=== PATIENT | female | born 1960 | race Caucasian/White ===

== ENCOUNTER 2019-08-06 14:56 | Emergency (ER) | payer OTHER ==
[~2019-08-06] VITALS: Ht 154.9 cm; Wt 100.0 kg
[2019-08-06 15:01] VITALS: BP 122/83
--- NOTE | 2019-08-06 15:31 | EKG ---
[address] [address] Test Date: 2019-08-06 Test Time: 15:23:46 Pat Name: ARIELLE BLACKMON Department: Room: Gender: Hospitality Manager: : 1960 Requested By: NISA MUELLER Order Number: [id number] Reading MD: Alan Paulino MD Measurements Intervals [place] Rate: P: DC: QRS: QRSD: T: QT: QTc: Interpretive Statements SR NON-SPECIFIC ST/T CHANGES Electronically Signed On 08-13-2019 13:24:19 CDT by Alan Paulino MD
--- NOTE | 2019-08-06 15:41 | RAD ---
EXAM: CT head without contrast INDICATION: Left-sided paresthesia, weakness COMPARISON: None TECHNIQUE: Axial CT imaging through the head without intravenous contrast. One or more of the following individualized dose reduction techniques were utilized for this examination: 1. Automated exposure control 2. Adjustment of the mA and/or kV according to patient size 3. Use of iterative reconstruction technique. FINDINGS: The ventricles and sulci are normal. Weber-white matter differentiation is maintained. There is no intracranial hemorrhage, acute infarct, or mass lesion. Basal cisterns are clear. The skull and scalp are intact. The visualized portions of the paranasal sinuses and mastoid air cells, and globes and orbits are unremarkable. IMPRESSION: No acute intracranial abnormality. Electronically signed by: Jackie Ace MD (08/06/2019 3:38 PM) [id number]
--- NOTE | 2019-08-06 15:41 | RAD ---
EXAM: PORTABLE CHEST 1V INDICATION: Reason: Pedal edema / Spl. Instructions: / History: . TECHNIQUE: Single view COMPARISON: None FINDINGS: The heart size is normal. The great vessels appear unremarkable. There is no hilar or mediastinal mass. The lungs are clear. There is no pleural effusion or pneumothorax. There are no significant osseous abnormalities. IMPRESSION: No active cardiopulmonary disease. Electronically signed by: Sulema Munson MD (08/06/2019 3:39 PM) [id number]
[2019-08-06] MEDS ORDERED: IOHEXOL 350 MG/ML 100 ML VIAL. IV ONE (15:45)
--- NOTE | 2019-08-06 15:45 | PHYS DOC ---
Past History Past Medical History: Fibromyalgia, High Cholesterol Additional Past Medical Histor: Sarcoidosis Smoking: Non-smoker NIH Stroke Scale: NIH Stroke Scale Response (Comments) Value Level of Consciousness: 0 Alert/Responsive 0 LOC Questions: 0 Answers both correctly 0 LOC Commands: 0 Performs both tasks 0 Best Gaze: 0 Normal 0 Visual: 0 No visual loss 0 Facial Palsy: 0 Normal, symmetrical 0 Motor - Left Arm 0 No drift 0 Motor - Right Arm 0 No drift 0 Motor - Left Leg 0 No drift 0 Motor: Right Leg 0 No drift 0 Limb Ataxia: 0 Absent 0 Sensory: 1 Mid to moderate loss 1 Best Language: 0 Normal 0 Dysathria: 0 Normal 0 Extinction and Inattention: 0 Normal 0 Total 1 General Adult EDM: Chief Complaint: NEURO SYMPTOMS/DEFICITS HPI: HPI: Patient is a 58-year-old female who presents to the emergency department for evaluation. She states that she awakened this morning and noticed that her left face was droopy, her left face and left arm were tingly, and her left arm seemed weaker than it normally did. She states her symptoms largely persisted throughout the day. She did not have any headache, vision changes, speech difficulties, or any pain. She states that she has had pedal edema on and off for several years, which flared up again over the past 2 months. She has a friend who is an EMT and because the constellation of symptoms persuaded her to come to the emergency department. She did not have any balance difficulties. There are no alleviating or exacerbating factors to her symptoms. Patient states that she has already taken 6 81 mg aspirin tablets today. Review of Systems: Review of Systems: Constitutional: Denies fever or chills Eyes: Denies change in visual acuity HENT: Denies nasal congestion or sore throat Respiratory: Denies cough or shortness of breath Cardiovascular: Denies chest pain or edema GI: Denies abdominal pain, nausea, vomiting, bloody stools or diarrhea : Denies dysuria Musculoskeletal: Denies back pain or joint pain Integument: Denies rash Neurologic: As per HPI Endocrine: Denies polyuria or polydipsia Lymphatic: Denies swollen glands Psychiatric: Denies depression or anxiety Heart Score: Risk Factors: Risk Factors: DM, Current or recent (<one month) smoker, HTN, HLP, family history of CAD, obesity. Risk Scores: Score 0 - 3: 2.5% MACE over next 6 weeks - Discharge Home Score 4 - 6: 20.3% MACE over next 6 weeks - Admit for Clinical Observation Score 7 - 10: 72.7% MACE over next 6 weeks - Early Invasive Strategies Allergies: Allergies: Allergies Coded Allergies Type Severity Reaction Last Updated Verified No Known Drug Allergies 08/06/19 No Physical Exam: PE: PHYSICAL EXAM: CONSTITUTIONAL: Well developed, well nourished HEAD: normocephalic, atraumatic EENT: PERRL, EOMI. Conjunctivae normal color, sclerae non-icteric; moist mucous membranes. NECK: Supple, non-tender; no meningismus. LUNGS: Lungs CTA, breathing even and unlabored. Normal air movement. HEART: Regular rate and rhythm, no murmur CHEST: No deformity; non-tender ABDOMEN: The abdomen is soft, and non-tender, no masses or bruits. EXTREM: Normal ROM; no deformity, no calf tenderness. Normal pulses palpable in all extremities. There is no pedal edema. SKIN: No rash; no diaphoresis NEURO: Alert; normal speech and cognition; there is slight decreased pinprick sensation to the left face, otherwise CN's grossly intact; there is decreased pinprick sensation of the left upper extremity compared to the right. There is mild weakness of flexion of the left upper extremity relative to the right, which is occult to the NIH stroke scale. Visual earl are intact by confrontation. Lcdzvf-sdif-yunuwr and heel evans testing is normal. BACK: No CVA TTP. Current Patient Data: Labs: Laboratory Tests Test 08/06/19 15:37 White Blood Count 7.1 x10^3/uL Red Blood Count 4.18 x10^6/uL Hemoglobin 13.7 g/dL Hematocrit 39.5 % Mean Corpuscular Volume 95 fL Mean Corpuscular Hemoglobin 33 pg Mean Corpuscular Hemoglobin Concent 35 g/dL Red Cell Distribution Width 13.2 % Platelet Count 221 x10^3/uL Neutrophils (%) (Auto) 66 % Lymphocytes (%) (Auto) 24 % Monocytes (%) (Auto) 7 % Eosinophils (%) (Auto) 2 % Basophils (%) (Auto) 1 % Neutrophils # (Auto) 4.7 x10^3uL Lymphocytes # (Auto) 1.7 x10^3/uL Monocytes # (Auto) 0.5 x10^3/uL Eosinophils # (Auto) 0.1 x10^3/uL Basophils # (Auto) 0.0 x10^3/uL Sodium Level 142 mmol/L Potassium Level 3.9 mmol/L Chloride Level 107 mmol/L Carbon Dioxide Level 29 mmol/L Anion Gap 6 Blood Urea Nitrogen 16 mg/dL Creatinine 1.0 mg/dL Estimated GFR (Cockcroft-Gault) 56.7 BUN/Creatinine Ratio 16 Glucose Level 109 mg/dL Calcium Level 8.6 mg/dL Total Bilirubin 0.2 mg/dL Aspartate Amino Transf (AST/SGOT) 13 U/L Alanine Aminotransferase (ALT/SGPT) 26 U/L Alkaline Phosphatase 102 U/L Troponin I Quantitative < 0.017 ng/mL ZL-Hfh-Q-Type Natriuretic Peptide 11 pg/mL Total Protein 7.4 g/dL Albumin 3.7 g/dL Albumin/Globulin Ratio 1.0 Current Medications Medications (Trade) Dose Ordered Sig/Chrissy Route PRN Reason Start Time Stop Time Status Last Admin Dose Admin Iohexol (Omnipaque 350 Mg/ml) 100 ml 1X ONCE IV 08/06/19 15:45 08/06/19 15:47 DC 08/06/19 16:00 EKG: EKG: [] Radiology/Procedures: Radiology/Procedures: PROCEDURE: CT HEAD WO CONTRAST EXAM: CT head without contrast INDICATION: Left-sided paresthesia, weakness COMPARISON: None TECHNIQUE: Axial CT imaging through the head without intravenous contrast. One or more of the following individualized dose reduction techniques were utilized for this examination: 1. Automated exposure control 2. Adjustment of the mA and/or kV according to patient size 3. Use of iterative reconstruction technique. FINDINGS: The ventricles and sulci are normal. Weber-white matter differentiation is maintained. There is no intracranial hemorrhage, acute infarct, or mass lesion. Basal cisterns are clear. The skull and scalp are intact. The visualized portions of the paranasal sinuses and mastoid air cells, and globes and orbits are unremarkable. IMPRESSION: No acute intracranial abnormality. [] PROCEDURE: CT ANGIOGRAPHY HEAD AND NECK EXAM: CT Angiogram of the Head and Neck INDICATION: Reason: CODE STROKE, L sided parsthesias and weakness / Spl. Instructions: / History: TECHNIQUE: CT images were obtained through the head per standard CTA protocol. Multiplanar and 3D reformatted images were generated from the CT dataset on an independent workstation. All CT scans performed at this facility utilize dose optimization techniques as appropriate to the exam, including the following: Automated exposure control and adjustment of the mA and/or KV according to patient size (this includes techniques or standardized protocols for targeted exams where dose is indication/reason for exam). IV CONTRAST: Administered COMPARISON: None FINDINGS: CTA HEAD: No high-grade large vessel stenosis, proximal or branch vessel occlusion, aneurysm, or vascular malformation. ANTERIOR CIRCULATION: Anterior and middle cerebral arteries are widely patent. ANTERIOR COMMUNICATING ARTERY: Patent. POSTERIOR COMMUNICATING ARTERIES: Present bilaterally and patent. POSTERIOR CIRCULATION: Vertebral and basilar arteries are widely patent. Bilateral posterior inferior cerebellar arteries (PICAs), anterior inferior cerebellar arteries (AICAs), and superior cerebellar arteries (SCAs) are visualized and patent. OTHER: No abnormal brain parenchymal enhancement. The paranasal sinuses, mastoid air cells, and tympanic cavities are clear. NECK CTA: AORTA: 3 vessel configuration of arch. No dissection or acute aortic injury. No hemodynamically significant great vessel origin stenosis. RIGHT CAROTID: Common and internal carotid arteries are widely patent, without evidence of flow limiting stenosis or dissection. LEFT CAROTID: Common and internal carotid arteries are widely patent, without evidence of flow limiting stenosis or dissection. VERTEBRAL ARTERIES: Codominant. No evidence of dissection or flow limiting stenosis. SUBCLAVIAN ARTERIES:Subclavian arteries are patent without stenosis. SOFT TISSUES: Soft tissues are unremarkable. Lung apices are clear. Where applicable, evaluation of ICA stenosis was performed using NASCET criteria, where the site of greatest stenosis is compared to the diameter of the ICA distal to the carotid bulb. IMPRESSION: Normal CTA of the head and neck. No evidence of hemodynamically significant stenosis, but partial occlusion, aneurysm, vascular malformation or other acute vascular pathology in the arteries of the head and neck. PROCEDURE: PORTABLE CHEST 1V EXAM: PORTABLE CHEST 1V INDICATION: Reason: Pedal edema / Spl. Instructions: / History: . TECHNIQUE: Single view COMPARISON: None FINDINGS: The heart size is normal. The great vessels appear unremarkable. There is no hilar or mediastinal mass. The lungs are clear. There is no pleural effusion or pneumothorax. There are no significant osseous abnormalities. IMPRESSION: No active cardiopulmonary disease. Course & Med Decision Making: Course & Med Decision Making Pertinent Labs and Imaging studies reviewed. (See chart for details) [] Patient's condition remained stable. I am somewhat concerned that she has had a small ischemic stroke and I recommended to the patient that she stay in the hospital for further evaluation and treatment. She adamantly refuses hospitalization at this point, expressing understanding that her symptoms may worsen and lead to a permanently disabling or debilitating stroke. The importance of close follow-up as a second best option was discussed with the patient although she understands that the plan of care is suboptimal given her declining to be hospitalized. Return precautions were stressed. I recommended she begin taking a baby aspirin once daily. Dragon Disclaimer: Pieter Disclaimer: This electronic medical record was generated, in whole or in part, using a voice recognition dictation system. Departure Departure: Impression: Primary Impression: Weakness Additional Impression: Paresthesia Disposition: AGAINST MEDICAL ADVICE Condition: STABLE Referrals: ZUNILDA DONALDSON MD Patient Instructions: Ischemic Stroke, Stroke Prevention Additional Instructions: Return to medical care for any new or worsening symptoms. The emergency physician recommended you remain hospitalized for further evaluation and treatment for a possible stroke. You declined at this hospitalization. It is critically important that you obtain close outpatient follow-up for further evaluation and treatment. Justification of Admission: Justification of Admission: Justification of Admission Dx: N/A NISA MUELLER MD Aug 06, 2019 15:45
[2019-08-06 15:53] LABS: BASO % 1 % (0-3); EOS # 0.1 x10^3/uL (0.0-0.7); EOS % 2 % (0-3); HEMATOCRIT 39.5 % (36.0-47.0); HEMOGLOBIN 13.7 g/dL (12.0-15.5); LYMPH # 1.7 x10^3/uL (1.0-4.8); LYMPH % 24 % (24-48); MEAN CORPUSCULAR HEMOGLOBIN 33 pg (25-35); MEAN CORPUSCULAR HGB CONC 35 g/dL (31-37); MEAN CORPUSCULAR VOLUME 95 fL (79-100); MONO # 0.5 x10^3/uL (0.0-1.1); MONO % 7 % (0-9); NEUT # 4.7 x10^3uL (1.8-7.7); NEUT % 66 % (31-73); PLATELET COUNT 221 x10^3/uL (140-400); RED BLOOD COUNT 4.18 x10^6/uL (3.50-5.40); RED CELL DISTRIBUTION WIDTH 13.2 % (11.5-14.5); WHITE BLOOD COUNT 7.1 x10^3/uL (4.0-11.0)
[2019-08-06 16:04] LABS: CALCIUM 8.6 mg/dL (8.5-10.1); GFR 56.7; POTASSIUM 3.9 mmol/L (3.5-5.1)
[2019-08-06 16:17] LABS: ALBUMIN 3.7 g/dL (3.4-5.0); TOTAL BILIRUBIN 0.2 mg/dL (0.2-1.0); TOTAL PROTEIN 7.4 g/dL (6.4-8.2)
--- NOTE | 2019-08-06 16:39 | RAD ---
EXAM: CT Angiogram of the Head and Neck INDICATION: Reason: CODE STROKE, L sided parsthesias and weakness / Spl. Instructions: / History: TECHNIQUE: CT images were obtained through the head per standard CTA protocol. Multiplanar and 3D reformatted images were generated from the CT dataset on an independent workstation. All CT scans performed at this facility utilize dose optimization techniques as appropriate to the exam, including the following: Automated exposure control and adjustment of the mA and/or KV according to patient size (this includes techniques or standardized protocols for targeted exams where dose is indication/reason for exam). IV CONTRAST: Administered COMPARISON: None FINDINGS: CTA HEAD: No high-grade large vessel stenosis, proximal or branch vessel occlusion, aneurysm, or vascular malformation. ANTERIOR CIRCULATION: Anterior and middle cerebral arteries are widely patent. ANTERIOR COMMUNICATING ARTERY: Patent. POSTERIOR COMMUNICATING ARTERIES: Present bilaterally and patent. POSTERIOR CIRCULATION: Vertebral and basilar arteries are widely patent. Bilateral posterior inferior cerebellar arteries (PICAs), anterior inferior cerebellar arteries (AICAs), and superior cerebellar arteries (SCAs) are visualized and patent. OTHER: No abnormal brain parenchymal enhancement. The paranasal sinuses, mastoid air cells, and tympanic cavities are clear. NECK CTA: AORTA: 3 vessel configuration of arch. No dissection or acute aortic injury. No hemodynamically significant great vessel origin stenosis. RIGHT CAROTID: Common and internal carotid arteries are widely patent, without evidence of flow limiting stenosis or dissection. LEFT CAROTID: Common and internal carotid arteries are widely patent, without evidence of flow limiting stenosis or dissection. VERTEBRAL ARTERIES: Codominant. No evidence of dissection or flow limiting stenosis. SUBCLAVIAN ARTERIES:Subclavian arteries are patent without stenosis. SOFT TISSUES: Soft tissues are unremarkable. Lung apices are clear. Where applicable, evaluation of ICA stenosis was performed using NASCET criteria, where the site of greatest stenosis is compared to the diameter of the ICA distal to the carotid bulb. IMPRESSION: Normal CTA of the head and neck. No evidence of hemodynamically significant stenosis, but partial occlusion, aneurysm, vascular malformation or other acute vascular pathology in the arteries of the head and neck. FOR INTERNAL CODING PURPOSES Critical result: Findings discussed with NISA MUELLER at 08/06/2019 4:35 PM. RESULT CODE: (C) Electronically signed by: Sulema Munson MD (08/06/2019 4:35 PM) [id number]
== END 2019-08-06 17:16 | disposition left against medical advice (07) ==
LOC: ER 14:56
DX: R29.810 Facial weakness (principal); R20.2 Paresthesia of skin; R60.0 Localized edema; M79.7 Fibromyalgia; E78.00 Pure hypercholesterolemia, unspecified
CPT/HCPCS: 36415; 70450; 70496; 70498; 71045; 80053; 83880; 84484; 85025; 93005; 99285; Q9967

== ENCOUNTER → 2020-10-17 | Outpatient (CLI) | payer OTHER | LOC: MAMMO 09:04 | PROVIDERS: ATTEND Family Medicine | DX: Z12.31 Encounter for screening mammogram for malignant neoplasm of breast (principal) | CPT/HCPCS: 77063; 77067 ==

== ENCOUNTER → 2020-11-12 | Outpatient (CLI) | payer OTHER ==
--- NOTE | 2020-11-12 15:08 | RAD ---
EXAM: Breast diagnostic mammogram; right breast sonogram. HISTORY: 60-year-old female presents for evaluation of asymmetry within the right breast demonstrated on a mammogram dated 10/17/2020. TECHNIQUE: Full-field digital and spot compression views of the right breast are obtained for evaluat ion. Sonographic imaging of the right breast targeted to the site of mammographic asymmetry was also performed. COMPARISON: 10/17/2020 and 03/22/2018 BREAST PARENCHYMAL DENSITY: Level A - Mostly fat. FINDINGS: There is persistent asymmetry within the right breast at mid depth centered at the 9:00 pos ition with additional mammographic views. This changes configuration between projections and with spo t compression. However, this is not completely resolved. No architectural distortion or suspicious ca lcifications seen. Significant imaging of the right breast demonstrates a hypoechoic lesion with irregular margins measu ring 8 mm at the 9:00 position 6 cm from the nipple, likely corresponding with the mammographic findi ng of concern. This demonstrates no internal blood flow or posterior shadowing. IMPRESSION: 1. 8 mm hypoechoic lesion with irregular margins at the 9:00 position of the right breast 6 cm from t he nipple, corresponding with the finding of concern on the prior screening mammogram. Given the morp hology of this finding and absence of a correlate on a mammogram performed 03/22/2018, sonographic wyatt ded biopsy is recommended for definitive diagnosis. 2. BI-RADS Category 4: Suspicious abnormality. Sonographic guided biopsy is recommended. These findings and recommendations were discussed with the patient and communicated to Sarah, a nurse isabel n the referring physician office, at 1500 hours on 11/12/2020. If your mammogram demonstrates that you have dense breast tissue, which could hide abnormalities, and if you have other risk factors for breast cancer that have been identified, you might benefit from s upplemental screening tests that may be suggested by your ordering physician. Dense breast tissue, i n and of itself, is a relatively common condition. This information is not provided to cause undue c oncern, but rather to raise your awareness and to promote discussion with your physician regarding th e presence of other risk factors, in addition to dense breast tissue. A report of your mammography re sults will be sent to you and your physician. You should contact your physician if you have any ques tions or concerns regarding this report. Mammography is a sensitive method for finding small breast cancers, but it does not detect them all a nd is not a substitute for careful clinical examination. A negative mammogram does not negate a clin ically suspicious finding and should not result in delay in biopsying a clinically suspicious abnorma lity. PQRS compliance statement - Patient information was entered into a reminder system with a target due date for the next mammogram. "Our facility is accredited by the [employer] Mammography [employer]." Electronically signed by: Kimmie Mancera MD (11/12/2020 3:05 PM) [id number]
== END ==
LOC: MAMMO 13:56
PROVIDERS: ATTEND Family Medicine
DX: R93.89 Abnormal findings on diagnostic imaging of other specified body structures (principal)
CPT/HCPCS: 76642; 77065